=== PATIENT | female | born 1980 ===

== ENCOUNTER 2019-07-02 22:02 | Inpatient (IN) ==
[2019-07-02] MEDS ORDERED: ONDANSETRON 4 MG/2 ML VIAL IV STA (23:55)
[2019-07-02] MEDS ORDERED: AZITHROMYCIN INJ 500 MG in SODIUM CHLORIDE 0.9% 250 ML IV STA (23:55)
[2019-07-03] MEDS ORDERED: ACETAMINOPHEN 500 MG TABLET PO STA (00:56)
[2019-07-03] MEDS ORDERED: ACETAMINOPHEN 500 MG TABLET ONE (00:56)
[2019-07-03 00:57] LABS: Basophils % 0.1 % (0.0-0.8); Hematocrit 40.9 VOL% (35.7-47.0); Hemoglobin 14.4 GM/DL (12.0-16.0); Immature Granulocytes % 0.4 %; Immature Granulocytes Absolute 0.03 #; Lymphocytes # 1.3 10*3/uL (1.4-4.0); Lymphocytes % 19.6 % (21.3-54.2); Mean Corpuscular HGB Conc 35.2 GM/DL (32-36); Mean Corpuscular Volume 85.9 FL (87-102); Mean Platelet Volume 12.8 FL (9.6-12.0); Monocytes % 6.5 % (1.7-12.7); Neutrophils % 73.4 % (38.7-73.9); Platelet Count 127 T/CUMM (130-400); Red Blood Count 4.76 MC/CUMM (3.8-5.5); Red Cell Distribution Width 11.8 % (9.3-17.3); White Blood Count 6.7 T/CUMM (4-12)
[2019-07-03] MEDS ORDERED: methylPREDNISolone SOD SUC 125 MG/2 ML VIAL IV STA (01:07)
[2019-07-03 01:10] LABS: PT Patient Result 10.8 SECS (9.8-11.9); Partial Thromboplastin Time 26.2 SECS (23.9-33.8)
[2019-07-03 01:30] LABS: Albumin 2.8 G/DL (3.4-5.0); Bilirubin,Total 0.4 MG/DL (0.2-1.0); Calcium 8.4 MG/DL (8.5-10.1); Ferritin 593.6 ng/ml (8-252); Osmolality,Calculated 260.1 MOS/KG (273-304); Platelet Estimate Normal; Total Protein 8.4 G/DL (6.4-8.3)
[2019-07-03 01:31] LABS: Hypochromasia Slight
[2019-07-03 01:33] LABS: Atypical Lymphocytes Few
[2019-07-03 04:08] LABS: ABG Base Excess -2.2 MMOL/L (-2.5-2.5); ABG HCO3 22.5 MMOL/L (20-26); ABG Oxygen Saturation 93.7 % (95-100); ABG PCO2 33.9 MM HG (35-48); ABG PH 7.412 (7.35-7.45); ABG PO2 67.9 MM HG (80-95); ABG TCO2 18.7 MMOL/L (23-27); Allen Test Positive; Pt O2 Delivery Device Room Air
[2019-07-03] MEDS ORDERED: guaiFENesin/DM ER 600-30 MG TABLET PO PRN (04:36)
[2019-07-03] MEDS ORDERED: DEXTROSE 50% 25 GM/50 ML VIAL IV PRN (04:36)
[2019-07-03] MEDS ORDERED: ACETAMINOPHEN 325 MG TABLET PO PRN (04:36)
[2019-07-03] MEDS ORDERED: NICOTINE 21 MG/24 HR PATCH TRANSDERM PRN (04:36)
[2019-07-03] MEDS ORDERED: GLUCAGON 1 MG VIAL IM PRN (04:36)
[2019-07-03] MEDS ORDERED: diphenhydrAMINE CAP 25 MG CAPSULE PO PRN (04:36)
[2019-07-03] MEDS ORDERED: ONDANSETRON 4 MG/2 ML VIAL IV PRN (04:36)
[2019-07-03] MEDS ORDERED: ALUMINUM/MAGNES/SIMETH MAX STR 30 ML UDCUP PO PRN (04:36)
[2019-07-03] MEDS ORDERED: hydrALAZINE 20 MG/1 ML VIAL IV PRN (04:36)
[2019-07-03 07:05] LABS: Apearance,Urine Slightly Hazy (Clear); Bacteria,Urine Occasional /HPF (Few); Bilirubin,Urine Negative (Negative); Blood, Urine Negative (Negative); Glucose,Urine (UA) Negative (Negative); Granular Casts,Urine 6 /LPF (0-1); Hyaline Casts,Urine 16 /LPF (0-3); Ketones,Urine 20 mg/dL (Negative); Mucus,Urine Few /LPF (Occasional); Nitrite,Urine Negative (Negative); Protein,Urine >=500 MG/DL; RBC,Urine 1 /HPF (0-4); Squamous Epithelial Cell,Urine Occasional /HPF (0-10); Urine Color Amber (Yellow); Urine Specific Gravity 1.023 (1.001-1.035); WBC,Urine 5 /HPF (0-6)
[2019-07-03] MEDS: SODIUM CHLORIDE 0.9% 1,000 ML IV SCH ×2 (08:52→21:01)
[2019-07-03] MEDS: INSULIN REGULAR 100 UNIT/ML SUBCUT SCH ×3 (09:16→18:33)
[2019-07-03] MEDS: cefTRIAXone 1,000 MG in SYRINGE 1 EACH IV SCH (09:16)
[2019-07-03] MEDS: AZITHROMYCIN 250 MG TABLET PO SCH (14:46)
[2019-07-03] MEDS ORDERED: DEXTROSE 10% 250 ML BAG IV PRN (18:11)
[2019-07-03] MEDS: INSULIN GLARGINE 100 UNIT/ML SUBCUT SCH (21:03)
[2019-07-04] MEDS: INSULIN REGULAR 100 UNIT/ML SUBCUT SCH ×4 (00:39→18:44)
[2019-07-04 04:58] LABS: Albumin 2.4 G/DL (3.4-5.0); Bilirubin,Total 1.1 MG/DL (0.2-1.0); Osmolality,Calculated 278.2 MOS/KG (273-304)
[2019-07-04] MEDS: cefTRIAXone 1,000 MG in SYRINGE 1 EACH IV SCH (06:11)
[2019-07-04] MEDS: SODIUM CHLORIDE 0.9% 1,000 ML IV SCH ×2 (06:14→15:16)
[2019-07-04 09:35] LABS: Calcium 7.9 MG/DL (8.5-10.1); Osmolality,Calculated 279.7 MOS/KG (273-304)
[2019-07-04] MEDS: AZITHROMYCIN 250 MG TABLET PO SCH (11:21)
[2019-07-04] MEDS: INSULIN GLARGINE 100 UNIT/ML SUBCUT SCH (20:11)
[2019-07-05] MEDS: INSULIN REGULAR 100 UNIT/ML SUBCUT SCH ×4 (00:38→17:32)
[2019-07-05 04:19] LABS: Basophils % 0.2 % (0.0-0.8); Hematocrit 33.2 VOL% (35.7-47.0); Hemoglobin 11.1 GM/DL (12.0-16.0); Immature Granulocytes % 0.2 %; Immature Granulocytes Absolute 0.01 #; Lymphocytes # 1.9 10*3/uL (1.4-4.0); Lymphocytes % 36.3 % (21.3-54.2); Mean Corpuscular HGB Conc 33.4 GM/DL (32-36); Mean Corpuscular Volume 89.2 FL (87-102); Mean Platelet Volume 12.5 FL (9.6-12.0); Monocytes % 9.2 % (1.7-12.7); Neutrophils % 54.1 % (38.7-73.9); Platelet Count 130 T/CUMM (130-400); Red Blood Count 3.72 MC/CUMM (3.8-5.5); Red Cell Distribution Width 12.2 % (9.3-17.3); White Blood Count 5.1 T/CUMM (4-12)
[2019-07-05] MEDS: SODIUM CHLORIDE 0.9% 1,000 ML IV SCH ×3 (04:27→21:32)
[2019-07-05] MEDS: cefTRIAXone 1,000 MG in SYRINGE 1 EACH IV SCH (04:33)
[2019-07-05 05:12] LABS: Hypochromasia Slight; Microcytosis Slight; Platelet Estimate Adequate
[2019-07-05 06:31] LABS: Calcium 7.8 MG/DL (8.5-10.1); Osmolality,Calculated 281.4 MOS/KG (273-304)
[2019-07-05] MEDS: AZITHROMYCIN 250 MG TABLET PO SCH (08:13)
[2019-07-05] MEDS: ZINC SULFATE 220 MG CAPSULE PO SCH (09:30)
[2019-07-05] MEDS: HYDROXYCHLOROQUINE 200 MG TABLET PO SCH ×2 (09:30→21:31)
[2019-07-05] MEDS: INSULIN GLARGINE 100 UNIT/ML SUBCUT SCH (21:32)
[2019-07-06] MEDS: INSULIN REGULAR 100 UNIT/ML SUBCUT SCH ×4 (00:36→17:26)
[2019-07-06] MEDS: SODIUM CHLORIDE 0.9% 1,000 ML IV SCH ×4 (04:29→18:08)
[2019-07-06 05:39] LABS: Eosinophils % 0.3 % (0.00-10.9); Hematocrit 32.4 VOL% (35.7-47.0); Immature Granulocytes % 0.5 %; Immature Granulocytes Absolute 0.02 #; Lymphocytes # 1.5 10*3/uL (1.4-4.0); Lymphocytes % 38.8 % (21.3-54.2); Mean Corpuscular Volume 87.3 FL (87-102); Mean Platelet Volume 12.9 FL (9.6-12.0); Neutrophils % 51.4 % (38.7-73.9); Platelet Count 130 T/CUMM (130-400); Red Blood Count 3.71 MC/CUMM (3.8-5.5); Red Cell Distribution Width 12.1 % (9.3-17.3); White Blood Count 3.9 T/CUMM (4-12)
[2019-07-06 05:57] LABS: Calcium 8.1 MG/DL (8.5-10.1); Osmolality,Calculated 277.5 MOS/KG (273-304)
[2019-07-06 06:07] LABS: Eosinophils 1 % (0-10); Lymphocytes 34 % (20-55); Segmented Neutrophils 55 % (50-85); Total Cells Counted 100
[2019-07-06 06:08] LABS: Hypochromasia 1+; Microcytosis Slight
[2019-07-06] MEDS: AZITHROMYCIN 250 MG TABLET PO SCH (08:21)
[2019-07-06] MEDS: HYDROXYCHLOROQUINE 200 MG TABLET PO SCH ×2 (08:21→21:51)
[2019-07-06] MEDS: cefTRIAXone 1,000 MG in SYRINGE 1 EACH IV SCH (08:21)
[2019-07-06] MEDS ORDERED: MAGNESIUM SULF RIDER 4 GM in PREMIX 1 EACH IV ONE (09:00)
[2019-07-06] MEDS: INSULIN GLARGINE 100 UNIT/ML SUBCUT SCH (21:50)
[2019-07-07] MEDS: INSULIN REGULAR 100 UNIT/ML SUBCUT SCH ×3 (00:09→12:26)
[2019-07-07] MEDS: SODIUM CHLORIDE 0.9% 1,000 ML IV SCH ×3 (00:12→11:41)
[2019-07-07] MEDS: ZINC SULFATE 220 MG CAPSULE PO SCH (10:56)
[2019-07-07] MEDS: HYDROXYCHLOROQUINE 200 MG TABLET PO SCH (10:56)
[2019-07-07 13:19] VITALS: BP 138/83
== END 2019-07-07 14:05 | disposition home or self-care (01) | DRG 177 ==
LOC: N.ED 22:02 → N.EDINP 22:02 → SUATTDRO 07-03 04:36 → SUPCPDRO 07-03 04:36 → N.2W 07-03 05:24
PROVIDERS: ADMIT Phlebology; ATTEND Family Medicine